=== PATIENT | female | born 1970 | race American Indian/Alaskan Native ===

== ENCOUNTER 2017-06-13 10:07 | Outpatient (CLI) | payer MEDICAID ==
--- NOTE | 2017-06-13 14:28 | Magnetic Resonance Report ---
MRI OF THE BRAIN WITHOUT CONTRAST: HISTORY: Seizure PROCEDURE: Multiplanar, multisequence MR imaging of the brain without IV contrast was performed. FINDINGS: There are no studies for comparison at this facility. There is significant cortical volume loss throughout both cerebral hemispheres as well as abnormal increased T2 signal in the subcortical white matter. The etiology of this is unclear but I suspect this could be secondary to a previous diffuse anoxic injury. Please correlate with the patient's clinical history. No evidence for acute ischemia, hemorrhage or mass. No extra-axial fluid collection. No focal chronic infarct. The midline structures are central. The basal cisterns are patent. Normal ventricular size. The orbital cavities and sella turcica demonstrate no abnormality. The visualized paranasal sinuses and mastoid air cells are well aerated. IMPRESSION: No acute intracranial process appreciated. No mass lesion or acute ischemia. There is however advance cortical volume loss and abnormal T2 signal in the subcortical white matter suggesting a previous diffuse anoxic injury. Please correlate with the patient's clinical history.
== END 2017-06-13 10:08 | disposition home or self-care (01) ==
LOC: MRI 10:07
PROVIDERS: ATTEND Psychiatry & Neurology Neurology
DX: G40.309 Generalized idiopathic epilepsy and epileptic syndromes, not intractable, without status epilepticus (principal)
CPT/HCPCS: 70551